=== PATIENT | male | born 1950 | race Caucasian/White ===

== ENCOUNTER 2019-05-22 12:37 | Outpatient (CLI) | payer MEDICARE, BC ==
[~2019-05-22] VITALS: Ht 188 cm; Wt 127.0 kg
[2019-05-22] MEDS ORDERED: albuterol 2.5 MG/3 ML nebule NEB ONE (13:40)
== END 2019-05-22 23:59 | disposition home or self-care (01) ==
LOC: RT 12:37
PROVIDERS: ATTEND Family Medicine
DX: R06.2 Wheezing (principal); J98.8 Other specified respiratory disorders
CPT/HCPCS: 85018; 94060; 94727; 94729; 94760